=== PATIENT | female | born 1985 | race African-American/Black ===

== ENCOUNTER 2025-03-11 01:56 | Emergency (ER) | payer MEDICAID ==
[2025-03-11 02:38] LABS: #Basophils 0.03 10x3/uL (0.0-0.2); #Eosinophils Less than 0.03 10x3/uL (0.0-0.5); #Monocytes 0.23 10x3/uL (0.0-1.1); #Neutrophils 19.48 10x3/uL (1.5-8.4); %Basophils 0.1 % (0.0-2.0); %Eosinophils 0.0 % (0.0-6.0); %Lymphocytes 3.3 % (18.0-47.0); %Monocytes 1.1 % (0.0-10.0); %Neutrophils 95.1 % (40.0-75.0); Hematocrit 36.3 % (34.9-44.5); Hemoglobin 11.4 g/dL (12.0-15.5); Mean Corpuscular Hemoglobin 25.7 pg (27.0-33.0); Mean Corpuscular Volume 81.8 fL (81.6-98.3); Platelet Count 387 10x3/uL (150-450); Red Blood Cell (RBC) Count 4.44 10x6/uL (3.90-5.03); White Blood Cell (WBC) Count 20.51 10x3/uL (3.5-10.5)
[2025-03-11 02:50] LABS: ALT (SGPT) 14 U/L (Less than 34); AST (SGOT) 16 U/L (11-34); Albumin 3.8 g/dL (3.1-4.5); Alkaline Phosphatase 62 U/L (40-110); Anion Gap 16 mmol/L (10-20); BUN (Urea Nitrogen) 6 mg/dL (7.0-18.7); Bilirubin, Total 0.2 mg/dL (0.3-1.2); Calc. Creatinine Clearance 0 mL/min (70-130); Calcium 9.4 mg/dL (7.8-10.44); Carbon Dioxide 21 mmol/L (22-29); Chloride 104 mmol/L (98-107); Globulin 4.3 g/dL (2.4-3.5); Glucose 126 mg/dL (70-105); Lipase 10 U/L (8-78); Potassium 3.6 mmol/L (3.5-5.1); Sodium 137 mmol/L (136-145)
[2025-03-11] MEDS ORDERED: Acetaminophen 500 MG TAB ONE (02:54)
[2025-03-11] MEDS ORDERED: Pantoprazole 40 MG VIAL ONE (02:55)
[2025-03-11 04:33] LABS: Glucose, Urine (Dipstick) Normal (Negative); Leukocyte Negative (Negative); Protein, Urine (Dipstick) 30 mg/dl (Neg-Trace); Specific Gravity, Urine 1.025 (1.005-1.030)
[2025-03-11 04:40] LABS: RBC/HPF 0-3 HPF (0-3)
[2025-03-11 04:41] LABS: Bacteria/HPF Rare-Few HPF (None Seen); CAUTI Indications for Culture Dysuria,urgency,freq; Urine Culture Reflex No No; WBC/HPF None Seen HPF (0-3)
[2025-03-11 10:02] LABS: #Basophils Less than 0.03 10x3/uL (0.0-0.2); #Eosinophils Less than 0.03 10x3/uL (0.0-0.5); #Monocytes 0.87 10x3/uL (0.0-1.1); #Neutrophils 14.17 10x3/uL (1.5-8.4); %Basophils 0.1 % (0.0-2.0); %Eosinophils 0.0 % (0.0-6.0); %Lymphocytes 8.3 % (18.0-47.0); %Monocytes 5.3 % (0.0-10.0); %Neutrophils 85.8 % (40.0-75.0); Hematocrit 31.6 % (34.9-44.5); Hemoglobin 9.9 g/dL (12.0-15.5); Mean Corpuscular Hemoglobin 25.5 pg (27.0-33.0); Mean Corpuscular Volume 81.4 fL (81.6-98.3); Platelet Count 340 10x3/uL (150-450); Red Blood Cell (RBC) Count 3.88 10x6/uL (3.90-5.03); White Blood Cell (WBC) Count 16.51 10x3/uL (3.5-10.5)
[2025-03-11] MEDS ORDERED: PROPOFOL 20 ML ONE (12:43)
[2025-03-11] MEDS ORDERED: Rocuronium Bromide 10 MG/ML (10ML VIAL) ONE (12:43)
[2025-03-11] MEDS ORDERED: Lidocaine 1% PF 5 ML VIAL ONE (12:43)
[2025-03-11] MEDS ORDERED: CEFAZOLIN 2 GM VIAL ONE (12:57)
[2025-03-11] MEDS ORDERED: Bupivacaine/Epinephrine 0.25% 30 ML VIAL ONE ×2 (12:57→12:58)
[2025-03-11] MEDS ORDERED: CEFAZOLIN 1 GM VIAL ONE (13:42)
[2025-03-11] MEDS ORDERED: PHENYLEPHRINE-NS 100 MCG/ML 10 ML SYRINGE ONE (13:58)
[2025-03-11] MEDS ORDERED: Ondansetron PF 4 MG/2 ML Vial ONE (14:16)
[2025-03-11] MEDS ORDERED: SUGAMMADEX SODIUM 200 MG/2 ML VIAL ONE (14:19)
[2025-03-11] MEDS ORDERED: HYDROcodone/Acetaminophen 5/325 mg Tablet ONE (15:04)
[2025-03-11] MEDS ORDERED: Ondansetron PF 4 MG/2 ML Vial IVP PRN (15:14)
== END 2025-03-11 13:27 | disposition admitted as inpatient to this hospital (09) ==
LOC: CSHERS 01:56
PROC: 0FT44ZZ Resection of Gallbladder, Percutaneous Endoscopic Approach (ICD-10-PCS; principal; 2025-03-11)
DX: O99.612 Diseases of the digestive system complicating pregnancy, second trimester (principal); K80.12 Calculus of gallbladder with acute and chronic cholecystitis without obstruction; K82.8 Other specified diseases of gallbladder; O09.522 Supervision of elderly multigravida, second trimester; O99.112 Other diseases of the blood and blood-forming organs and certain disorders involving the immune mechanism complicating pregnancy, second trimester; D72.829 Elevated white blood cell count, unspecified; Z3A.20 20 weeks gestation of pregnancy
CPT/HCPCS: 36415; 71045; 74181; 76705; 76815; 80053; 81001; 83605; 83690; 85025; 87040; 88304; 93005; 96374; 96375; C1889; J0690; J2270; J2405; J2470; J2543; J2704; J3010

== ENCOUNTER 2025-04-02 12:01 | Inpatient (IN) | payer MEDICAID ==
[2025-04-02 13:40] LABS: Fetal Membranes Rupture RUPTURE DETECTED (No Rupture)
[2025-04-02] MEDS ORDERED: Tranexamic Acid 1,000 MG/10 ML VIAL IVP PRN (14:42)
[2025-04-02] MEDS ORDERED: Acetaminophen 500 MG TAB PO PRN (14:42)
[2025-04-02] MEDS ORDERED: Carboprost 250 MCG/ML AMP IM PRN (14:42)
[2025-04-02] MEDS ORDERED: hydrALAZINE 20 MG/ML VIAL SLOW IVP PRN (14:42)
[2025-04-02] MEDS ORDERED: Diphenoxylate HCl/Atropine Tablet PO PRN ×2 (14:42)
[2025-04-02] MEDS ORDERED: Methylergonovine 0.2 MG/ML VIAL IM PRN (14:42)
[2025-04-02] MEDS ORDERED: Oxytocin 30 units/NS 500 ML 500 ML IV SCH (14:45)
[2025-04-02] MEDS: Azithromycin 250 MG TAB PO SCH (15:10)
[2025-04-02 16:07] LABS: #Basophils Less than 0.03 10x3/uL (0.0-0.2); #Eosinophils Less than 0.03 10x3/uL (0.0-0.5); #Monocytes 0.42 10x3/uL (0.0-1.1); #Neutrophils 7.31 10x3/uL (1.5-8.4); %Basophils 0.2 % (0.0-2.0); %Eosinophils 0.1 % (0.0-6.0); %Lymphocytes 18.3 % (18.0-47.0); %Monocytes 4.4 % (0.0-10.0); %Neutrophils 76.7 % (40.0-75.0); Hematocrit 31.6 % (34.9-44.5); Hemoglobin 10.3 g/dL (12.0-15.5); Mean Corpuscular Hemoglobin 26.2 pg (27.0-33.0); Mean Corpuscular Volume 80.4 fL (81.6-98.3); Platelet Count 387 10x3/uL (150-450); Red Blood Cell (RBC) Count 3.93 10x6/uL (3.90-5.03); White Blood Cell (WBC) Count 9.54 10x3/uL (3.5-10.5)
[2025-04-02 17:27] LABS: Hep B Surf Ag - L&D Non-Reactive S/CO (NonReactive)
[2025-04-02 17:32] LABS: Syphilis Antibody Index 0.08 S/CO (<1.00 Non-Reactive)
[2025-04-02 22:46] VITALS: BMI 30.7
[2025-04-03] MEDS: Milk Of Magnesia 30 ML UDCUP PO SCH (14:57)
[2025-04-03] MEDS: Ondansetron PF 4 MG/2 ML Vial IVP PRN (18:16)
[2025-04-03 19:21] LABS: Chlamydia by PCR, Vaginal Swab Not Detected (NotDetected); GC by PCR, Vaginal Swab Not Detected (NotDetected); Tric.vaginalis PCR,Vaginal Sw Not Detected (NotDetected)
[2025-04-05 00:06] LABS: Group B Streptococcus by PCR DETECTED (NotDetected)
== END 2025-04-03 18:18 | disposition home or self-care (01) | DRG 833 ==
LOC: CSHLD/OP 12:01 → CSHLD 15:04 → UNDODISIN 04-03 13:08
PROVIDERS: ADMIT Family Medicine; ATTEND Family Medicine
DX: O42.912 Preterm premature rupture of membranes, unspecified as to length of time between rupture and onset of labor, second trimester (principal); O46.93 Antepartum hemorrhage, unspecified, third trimester; O34.43 Maternal care for other abnormalities of cervix, third trimester; Z3A.24 24 weeks gestation of pregnancy; Z79.899 Other long term (current) drug therapy; Z79.82 Long term (current) use of aspirin
CPT/HCPCS: 76815; 76817; 84112; 85025; 86780; 86850; 86900; 86901; 87340; 87480; 87491; 87510; 87591; 87653; 87660; 87661; 99285; J0290; J0702